=== PATIENT | male | born 1935 | race Caucasian/White ===

== ENCOUNTER 2017-05-01 09:59 | Emergency (ER) | payer MEDICARE ==
[2009-07-01 16:20] VITALS: BMI 29.4
[2017-05-01 11:10] LABS: HEMATOCRIT 39.4 % (42.0-54.0); LYMPHOCYTES 15.1 % (15-50); MCH 29.7 pg (26.0-34.0); MCV 90.2 fL (80.0-100.0); MEAN PLATELET VOLUME 8.2 fL (7.4-10.4); NEUTROPHILS 79.1 % (40-80); RBC 4.37 10x6/uL (4.20-6.10); RDW 13.2 % (11.5-14.5); WBC 6.9 10x3/uL (4.8-10.8)
[2017-05-01 11:11] LABS: PLATELET COUNT 300 10x3/uL (130-400)
[2017-05-01 11:35] LABS: APTT 32.8 SECONDS (22.8-39.4); INR 1.93 (0.85-1.17); PROTIME 21.5 SECONDS (11.6-15.0)
[2017-05-01 11:43] LABS: ALBUMIN 4.2 g/dL (3.4-5.0); ALKALINE PHOSPHATASE 65 U/L (46-116); ALT (SGPT) 34 U/L (10-68); BILIRUBIN - TOTAL 0.41 mg/dL (0.2-1.3); CALC OSMOLALITY 273 mosm/kg (275-300); CALCIUM 9.6 mg/dL (8.5-10.1); CARBON DIOXIDE 27.6 mmol/L (21.0-32.0); CHLORIDE - SERUM 100 mmol/L (98-107); GLUCOSE 112 mg/dL (74-106); POTASSIUM - SERUM 4.5 mmol/L (3.5-5.1); PROTEIN - SERUM 7.5 g/dL (6.4-8.2); SODIUM 136 mmol/L (136-145); UREA NITROGEN 16 mg/dL (7-18); eGFR NON AFRICAN AMERICAN 76 mL/min (90-120)
== END 2017-05-01 14:00 | disposition home or self-care (01) ==
LOC: D.ER 09:59
PROVIDERS: Family Medicine; Physician Assistant
DX: K62.5 Hemorrhage of anus and rectum (principal); Z87.19 Personal history of other diseases of the digestive system; K92.2 Gastrointestinal hemorrhage, unspecified; F03.90 Unspecified dementia, unspecified severity, without behavioral disturbance, psychotic disturbance, mood disturbance, and anxiety

== ENCOUNTER 2017-05-21 07:30 | Day surgery (SDC) | payer MEDICARE, OTHER ==
[~2017-05-21] VITALS: Ht 182.9 cm; Wt 109.1 kg
--- NOTE | ~2017-05-21 | OP ---
PATIENT NAME: DYLAN SONG MEDICAL RECORD: [id number] :33 LOCATION:D.OPS ADMISSION DATE: SURGEON: ADAIR ALFONSO DO DATE OF OPERATION: 05/21/2017 PROCEDURE: Colonoscopy with EMR and hot forceps polypectomy. INDICATIONS FOR PROCEDURE: Hematochezia and change in bowel habits. SCOPE: Olympus video pediatric colonoscope. MEDICATIONS: Propofol 450 mg IV per anesthesia. WITHDRAWAL TIME: Greater than 20 minutes. ESTIMATED BLOOD LOSS: Minimal. COMPLICATIONS: None. FINDINGS: Informed consent was given. The patient was made comfortable with the above medication. After reaching an adequate level of sedation by slow IV push, the patient was placed on his left side. A digital rectal examination was performed and was normal. The endoscope was then advanced under direct visualization through the rectum to the cecum with visualization of the appendiceal orifice and ileocecal valve. The scope was slowly withdrawn and mucosa was carefully examined. Prep quality was fair today. There were 4 polyps visualized in total. The 2 largest polyps were located in the proximal ascending colon just distal to the ileocecal valve. These were sessile polyps which were benign-appearing and ranged in size from 8 mm to 15 mm. Both of these polyps were removed using endoscopic mucosal resection technique with injection of normal saline for a saline pillow followed by hot snare polypectomy in one piece and completely retrieved. The first polyp site required one endoclip for tissue appositioning. The second site required 2 polyps. The maneuvers were successful. In the transverse colon, there was a single benign appearing sessile polyp which measured approximately 3-4 mm in diameter. It was removed using hot forceps in one piece and completely retrieved. In the descending colon, there was a final polyp which measured approximately 5 mm in diameter. It was removed using hot forceps in one piece and completely retrieved. In the rectum, there were multiple nonbleeding AVMs/angioectasias, which did ooze blood upon contact. Retroflexion was performed without seeing large hemorrhoids. There were multiple small mouth diverticula located in the descending and sigmoid colon. IMPRESSION: 1. Multiple polyps as described above, removed using various methods. 2. Mild diverticulosis of the left side of the colon. 3. Rectal AVMs/angioectasias. PLAN AND RECOMMENDATIONS: 1. Discharge home when recovery parameters are met. 2. Follow up biopsy specimen results. 3. High fiber diet. 4. Continue current medications. 5. If the patient experiences further bleeding, I would recommend a flexible sigmoidoscopy with APC of the rectal angioectasias for definitive therapy. At OPERATIVE REPORT [id number] DIES,DYLAN ASH this time, I will give him some steroid suppositories for a couple of weeks and follow this expectantly as he states his bleeding has stopped with improvement in his bowel habits. TRANSINT:[id number] Voice Confirmation ID: [id number] DOCUMENT ID: [id number] ADAIR ALFONSO DO at 1119 CC: [id number] DICTATION DATE: 05/21/17 1001 CAR BODY INSPECTOR: 05/21/17 1043 [facility] 05/21/17 [id number] [place] [address]
[2017-05-21] MEDS ORDERED: ARICEPT5 MG PO (07:54)
[2017-05-21] MEDS ORDERED: COUMADIN5 MG PO (07:54)
[2017-05-21] MEDS ORDERED: ATIVAN1 MG PO (07:54)
[2017-05-21] MEDS ORDERED: ZOLOFT100 MG PO (07:54)
[2017-05-21] MEDS ORDERED: SIMVASTATIN (07:55)
[2017-05-21] MEDS ORDERED: BAYER CHEWABLE81 MG PO (07:55)
[2017-05-21] MEDS ORDERED: AMOXICILLIN500 M1 PO (07:56)
[2017-05-21] MEDS ORDERED: PEPCID AC20 MG PO (07:56)
[2017-05-21] MEDS ORDERED: FLOMAX0.4 MG PO (07:57)
[2017-05-21 08:02] VITALS: BP 144/82; Ht 182.9 cm; Wt 109.1 kg
[2017-05-21 08:16] LABS: BASOPHILS 0.2 % (0-2); EOSINOPHILS 3.4 % (0-7); HEMATOCRIT 42.7 % (42.0-54.0); IMMATURE GRANULOCYTES 0.2 % (0-5); LYMPHOCYTES 20.8 % (15-50); MCH 29.7 pg (26.0-34.0); MCHC 32.8 g/dL (31.0-37.0); MCV 90.7 fL (80.0-100.0); MEAN PLATELET VOLUME 9.8 fL (7.4-10.4); MONOCYTES 8.4 % (2-11); RBC 4.71 10x6/uL (4.20-6.10); RDW 13.4 % (11.5-14.5); WBC 8.2 10x3/uL (4.8-10.8)
[2017-05-21 08:19] LABS: PLATELET COUNT 222 10x3/uL (130-400)
[2017-05-21 08:20] LABS: ANION GAP 18.9 mmol/L (8-16); CALCIUM 10.1 mg/dL (8.5-10.1); CREATININE - SERUM 1.3 mg/dL (0.6-1.3); POTASSIUM - SERUM 3.9 mmol/L (3.5-5.1)
== END 2017-05-21 11:04 | disposition home or self-care (01) ==
LOC: D.OPS 07:30
PROVIDERS: Anesthesiology
DX: K92.1 Melena (principal); D12.2 Benign neoplasm of ascending colon; D12.4 Benign neoplasm of descending colon; D12.3 Benign neoplasm of transverse colon; I10 Essential (primary) hypertension; I48.91 Unspecified atrial fibrillation; Z01.812 Encounter for preprocedural laboratory examination

== ENCOUNTER 2017-10-23 18:52 | Emergency (ER) | payer MEDICARE, OTHER ==
[~2017-10-23] VITALS: Ht 182.9 cm; Wt 109.1 kg
[~2017-10-23 18:52] MED LIST: AMOXICILLIN500 M1 PO; ARICEPT5 MG PO; ATIVAN1 MG PO; BAYER CHEWABLE81 MG PO; COUMADIN5 MG PO; FLOMAX0.4 MG PO; PEPCID AC20 MG PO; SIMVASTATIN; ZOLOFT100 MG PO
[2017-10-23 19:03] VITALS: Ht 182.9 cm; Wt 109.1 kg
[2017-10-23 19:34] LABS: BASOPHILS 0.3 % (0-2); EOSINOPHILS 5.9 % (0-7); HEMATOCRIT 41.4 % (42.0-54.0); HEMOGLOBIN 13.8 g/dL (13.5-17.5); IMMATURE GRANULOCYTES 0.2 % (0-5); LYMPHOCYTES 19.1 % (15-50); MCH 30.3 pg (26.0-34.0); MCHC 33.3 g/dL (31.0-37.0); MCV 90.8 fL (80.0-100.0); MEAN PLATELET VOLUME 10.3 fL (7.4-10.4); MONOCYTES 8.8 % (2-11); NEUTROPHILS 65.7 % (40-80); PLATELET COUNT 228 10x3/uL (130-400); RBC 4.56 10x6/uL (4.20-6.10); RDW 13.9 % (11.5-14.5)
[2017-10-23 19:42] LABS: APTT 38.4 SECONDS (22.8-39.4); INR 2.55 (0.85-1.17); PROTIME 26.7 SECONDS (11.6-15.0)
[2017-10-23 20:07] LABS: ALBUMIN 4.2 g/dL (3.4-5.0); ALKALINE PHOSPHATASE 79 U/L (46-116); ALT (SGPT) 35 U/L (10-68); BILIRUBIN - TOTAL 0.34 mg/dL (0.2-1.3); CALC OSMOLALITY 280 mosm/kg (275-300); CALCIUM 9.4 mg/dL (8.5-10.1); CARBON DIOXIDE 26.1 mmol/L (21.0-32.0); CHLORIDE - SERUM 103 mmol/L (98-107); GLUCOSE 101 mg/dL (74-106); POTASSIUM - SERUM 4.4 mmol/L (3.5-5.1); PROTEIN - SERUM 7.6 g/dL (6.4-8.2); SODIUM 138 mmol/L (136-145); UREA NITROGEN 27 mg/dL (7-18); eGFR NON AFRICAN AMERICAN 76 mL/min (90-120)
[2017-10-23 20:27] LABS: CKMB 0.8 U/L (0.0-3.6); CREATINE KINASE 94 UL (21-232); PRO BNP 642 pg/mL (0-450)
[2017-10-23 20:39] LABS: TROPONIN-I < 0.017 ng/mL (0.000-0.060)
[2017-10-23 21:45] VITALS: BP 150/78
== END 2017-10-23 21:45 | disposition home or self-care (01) ==
LOC: D.ER 18:52
PROVIDERS: Emergency Medicine
DX: K62.5 Hemorrhage of anus and rectum (principal); Z79.01 Long term (current) use of anticoagulants; Z95.2 Presence of prosthetic heart valve; Z86.79 Personal history of other diseases of the circulatory system; F03.90 Unspecified dementia, unspecified severity, without behavioral disturbance, psychotic disturbance, mood disturbance, and anxiety

== ENCOUNTER 2018-03-27 20:25 | Emergency (ER) | payer MEDICARE, OTHER ==
[~2018-03-27] VITALS: Ht 182.9 cm; Wt 90.9 kg
[2018-03-27 20:35] VITALS: Ht 182.9 cm; Wt 90.9 kg
[2018-03-27 21:37] LABS: BASOPHILS 0.3 % (0-2); EOSINOPHILS 4.4 % (0-7); HEMATOCRIT 39.5 % (42.0-54.0); HEMOGLOBIN 13.3 g/dL (13.5-17.5); IMMATURE GRANULOCYTES 0.3 % (0-5); LYMPHOCYTES 20.4 % (15-50); MCH 30.8 pg (26.0-34.0); MCHC 33.7 g/dL (31.0-37.0); MCV 91.4 fL (80.0-100.0); MEAN PLATELET VOLUME 9.6 fL (7.4-10.4); MONOCYTES 5.5 % (2-11); NEUTROPHILS 69.1 % (40-80); PLATELET COUNT 213 10x3/uL (130-400); RBC 4.32 10x6/uL (4.20-6.10); RDW 13.7 % (11.5-14.5); WBC 7.3 10x3/uL (4.8-10.8)
[2018-03-27 21:44] LABS: APTT 29.9 SECONDS (22.8-39.4); INR 1.84 (0.85-1.17); PROTIME 20.6 SECONDS (11.6-15.0)
[2018-03-27 21:50] LABS: ALKALINE PHOSPHATASE 65 U/L (46-116); ALT (SGPT) 27 U/L (10-68); BILIRUBIN - TOTAL 0.38 mg/dL (0.2-1.3); CALC OSMOLALITY 280 mosm/kg (275-300); CARBON DIOXIDE 22.6 mmol/L (21.0-32.0); CHLORIDE - SERUM 101 mmol/L (98-107); CREATININE - SERUM 1.2 mg/dL (0.6-1.3); POTASSIUM - SERUM 3.8 mmol/L (3.5-5.1); PROTEIN - SERUM 6.7 g/dL (6.4-8.2); SODIUM 137 mmol/L (136-145); UREA NITROGEN 24 mg/dL (7-18); eGFR NON AFRICAN AMERICAN 61 mL/min (90-120)
[2018-03-27 21:53] LABS: GLUCOSE 154 mg/dL (74-106)
[2018-03-27 22:01] LABS: LIPASE 175 U/L (73-393); PRO BNP 657 pg/mL (0-450)
[2018-03-27 22:09] LABS: TROPONIN-I < 0.017 ng/mL (0.000-0.060)
[2018-03-27 22:51] VITALS: BP 108/64
== END 2018-03-27 22:53 | disposition home or self-care (01) ==
LOC: D.ER 20:25
PROVIDERS: Family Medicine
DX: K92.2 Gastrointestinal hemorrhage, unspecified (principal); Z79.01 Long term (current) use of anticoagulants; N28.9 Disorder of kidney and ureter, unspecified; F03.90 Unspecified dementia, unspecified severity, without behavioral disturbance, psychotic disturbance, mood disturbance, and anxiety

== ENCOUNTER → 2018-08-06 16:54 | Outpatient (CLI) | payer MEDICARE, OTHER ==
[2018-03-27 20:35] VITALS: BMI 27.2
[2018-08-06 17:22] LABS: BASOPHILS 0.1 % (0-2); EOSINOPHILS 4.9 % (0-7); HEMATOCRIT 35.8 % (42.0-54.0); HEMOGLOBIN 11.5 g/dL (13.5-17.5); IMMATURE GRANULOCYTES 0.3 % (0-5); LYMPHOCYTES 21.9 % (15-50); MCH 28.7 pg (26.0-34.0); MCHC 32.1 g/dL (31.0-37.0); MCV 89.3 fL (80.0-100.0); MEAN PLATELET VOLUME 9.4 fL (7.4-10.4); MONOCYTES 7.5 % (2-11); NEUTROPHILS 65.3 % (40-80); PLATELET COUNT 221 10x3/uL (130-400); RBC 4.01 10x6/uL (4.20-6.10); RDW 14.5 % (11.5-14.5); WBC 7.2 10x3/uL (4.8-10.8)
== END | disposition home or self-care (01) ==
LOC: D.LAB 16:54
PROVIDERS: ATTEND Internal Medicine Gastroenterology
DX: K62.5 Hemorrhage of anus and rectum (principal)

== ENCOUNTER 2018-09-17 07:41 | Day surgery (SDC) | payer MEDICARE, OTHER ==
[~2018-09-17] VITALS: Ht 182.9 cm; Wt 100.7 kg
[2018-09-17 08:16] LABS: HEMATOCRIT 37.3 % (42.0-54.0); HEMOGLOBIN 12.2 g/dL (13.5-17.5); MCH 28.6 pg (26.0-34.0); MCHC 32.7 g/dL (31.0-37.0); MCV 87.4 fL (80.0-100.0); MEAN PLATELET VOLUME 8.9 fL (7.4-10.4); RBC 4.27 10x6/uL (4.20-6.10); RDW 14.8 % (11.5-14.5); WBC 6.5 10x3/uL (4.8-10.8)
[2018-09-17 09:02] VITALS: BP 120/67; Ht 182.9 cm; Wt 100.7 kg
--- NOTE | 2018-09-17 15:22 | NUR ---
1240 IV DC'ED WITH CATH INTACT BY Mili PALACIO R.N. UP TO BATHROOM WITHOU DIFFICULTY. DRESSING. Hugh AGUILERA R.N. 1250 DRESSED, AWAKE & ALERT. SITTING UP IN CHAIR . GIVEN DISCHARGE INFORMATION INCLUDING MED REC, SHEET LISTING NSAIDS TO AVOID, & [facility] ENDOSCOPY D/C INSTRUCTIONS INCLUDING TO RESUME COUMADIN IN 3 DAYS. PT & MRS. SONG VOICED UNDERSTANDING. TO PRIVATE CAR PER WHEELCHAIR BY VOLUNTEER. HOME WITH MRS. SONG. Hugh AGUILERA R.N.
--- NOTE | 2018-09-20 16:07 | OP ---
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 PROCEDURES: Flexible proctoscopy with treatment of angioectasias utilizing the argon plasma bereavement program coordinator with the right colon setting in the forced mode. SURGEON: Apple Patel MD GEOPHYSICAL LABORATORY DIRECTOR: None. BLOOD LOSS: Minimal. ANESTHESIA: IV sedation. COMPLICATIONS: None. The risks, possible complications and alternatives to the procedure were explained to the patient. He elects to proceed. ENDOSCOPIC COURSE: The patient was conveyed to the endoscopy suite electively on 09/17/2018. IV sedation was induced by the anesthesia staff. The patient was placed in the Albert position. A digital rectal examination was performed. Post-prostatectomy changes were identified. A colonoscope was inserted into the rectum. It was advanced to the sigmoid colon. The only area of angioectasias were on 1/2 of the rectum. Utilizing direct visualization and then a retroflexed view, I was able to visualize all of the angioectasias. I cleaned the rectum very well. Utilizing the argon plasma bereavement program coordinator with the right colon setting in the forced mode, I ablated all the angioectasias I could identify. There was very little bleeding. I then unretroflexed the scope and removed it under direct vision. I will see the patient in my office on a p.r.n. basis. There is no need for him to follow up with me in the office unless he develops a complication related to this operative procedure. I have told him that there may be a regrowth of new angioectasias and in fact this is to be expected. If he develops some hematochezia again, then he can just call the office and we will put him on the schedule for another treatment. He can restart his Coumadin in 3 days. TRANSINT:[id number] Voice Confirmation ID: [id number] DOCUMENT ID: [id number] OPERATIVE REPORT [id number] DYLAN SONG APPLE PATEL MD at 1607 CC: ROSA MCKEON MD, URVASHI SAUER MD and YAQUELIN [id number] DICTATION DATE: 09/17/18 1125 BRAND REPRESENTATIVE: 09/17/18 1140 [facility] 09/17/18 [id number] [place] [address]
== END 2018-09-17 12:50 | disposition home or self-care (01) ==
LOC: D.OPS 07:41
PROVIDERS: Anesthesiology; ATTEND Surgery
DX: I99.8 Other disorder of circulatory system (principal); K62.7 Radiation proctitis; Z01.812 Encounter for preprocedural laboratory examination

== ENCOUNTER 2019-11-27 15:45 | Observation (INO) | payer MEDICARE, OTHER ==
[~2019-11-27] VITALS: Ht 182.9 cm; Wt 109.1 kg
[2019-11-27 16:32] LABS: BASOPHILS 0.1 % (0-2); EOSINOPHILS 3.2 % (0-7); HEMATOCRIT 37.8 % (42.0-54.0); HEMOGLOBIN 12.7 g/dL (13.5-17.5); IMMATURE GRANULOCYTES 0.2 % (0-5); LYMPHOCYTES 19.8 % (15-50); MCH 30.3 pg (26.0-34.0); MCHC 33.6 g/dL (31.0-37.0); MCV 90.2 fL (80.0-100.0); MEAN PLATELET VOLUME 9.1 fL (7.4-10.4); MONOCYTES 8.5 % (2-11); NEUTROPHILS 68.2 % (40-80); PLATELET COUNT 221 10x3/uL (130-400); RBC 4.19 10x6/uL (4.20-6.10); RDW 13.3 % (11.5-14.5); WBC 8.2 10x3/uL (4.8-10.8)
[2019-11-27 16:35] VITALS: BP 140/65
--- NOTE | 2019-11-27 16:36 | NUR ---
PT DENIES CHEST PAIN AT THIS TIME.
[2019-11-27 16:53] LABS: APTT 35.3 SECONDS (22.8-39.4); INR 2.22 (0.85-1.17); PROTIME 24.3 SECONDS (11.6-15.0)
[2019-11-27 17:01] LABS: CALC OSMOLALITY 263 mosm/kg (275-300); CALCIUM 9.3 mg/dL (8.5-10.1); CARBON DIOXIDE 28.2 mmol/L (21.0-32.0); CHLORIDE - SERUM 95 mmol/L (98-107); CREATININE - SERUM 1.2 mg/dL (0.6-1.3); GLUCOSE 109 mg/dL (74-106); POTASSIUM - SERUM 4.8 mmol/L (3.5-5.1); SODIUM 130 mmol/L (136-145); UREA NITROGEN 18 mg/dL (7-18); eGFR NON AFRICAN AMERICAN 61 mL/min (90-120)
[2019-11-27 17:17] LABS: ALBUMIN 3.7 g/dL (3.4-5.0); ALKALINE PHOSPHATASE 68 U/L (30-120); ALT (SGPT) 29 U/L (10-68); BILIRUBIN - TOTAL 0.43 mg/dL (0.2-1.3); CKMB 0.8 U/L (0.0-3.6); CREATINE KINASE 126 UL (21-232); MAGNESIUM - SERUM 1.8 mg/dL (1.8-2.4); TROPONIN-I < 0.017 ng/mL (0.000-0.060)
[2019-11-27 17:33] VITALS: BP 150/74
[2019-11-27 18:42] LABS: CKMB 0.8 U/L (0.0-3.6); CREATINE KINASE 77 UL (21-232); TROPONIN-I < 0.017 ng/mL (0.000-0.060)
--- NOTE | 2019-11-27 19:05 | NUR ---
[PT DENIES CHEST PAIN AT THIS TIME.
--- NOTE | 2019-11-27 19:41 | NUR ---
CALLED REPORT TO [facility] UNABLE TO TRANSPORT PATIENT AT THIS TIME.
[2019-11-27] MEDS ORDERED: ZOCOR20 MG PO (20:41)
[2019-11-27] MEDS ORDERED: LOVENOX80 MG/0.8 SC (20:43)
[2019-11-27] MEDS ORDERED: NORVASC5 MG PO (20:43)
[2019-11-27] MEDS ORDERED: NAMENDA5 MG PO (20:44)
[2019-11-27] MEDS ORDERED: MELATONIN 3 MG1 TAB PO (20:45)
[2019-11-27] MEDS ORDERED: ACETAMINOPHEN500 M1 PO (20:46)
[2019-11-28] VITALS: BP 115/42
[2019-11-28 00:02] LABS: CKMB 0.6 U/L (0.0-3.6); CREATINE KINASE 89 UL (21-232); TROPONIN-I < 0.017 ng/mL (0.000-0.060)
[2019-11-28 04:00] VITALS: BP 135/61
[2019-11-28 04:19] VITALS: BMI 32.6
[2019-11-28 06:20] LABS: BASOPHILS 0.4 % (0-2); EOSINOPHILS 5.7 % (0-7); HEMATOCRIT 36.9 % (42.0-54.0); HEMOGLOBIN 12.1 g/dL (13.5-17.5); IMMATURE GRANULOCYTES 0.3 % (0-5); LYMPHOCYTES 20.1 % (15-50); MCHC 32.8 g/dL (31.0-37.0); MCV 91.3 fL (80.0-100.0); MEAN PLATELET VOLUME 8.8 fL (7.4-10.4); MONOCYTES 9.4 % (2-11); NEUTROPHILS 64.1 % (40-80); PLATELET COUNT 215 10x3/uL (130-400); RBC 4.04 10x6/uL (4.20-6.10); RDW 13.3 % (11.5-14.5)
[2019-11-28 06:40] LABS: INR 2.36 (0.85-1.17); PROTIME 25.5 SECONDS (11.6-15.0)
[2019-11-28 06:48] LABS: ALBUMIN 3.6 g/dL (3.4-5.0); ALKALINE PHOSPHATASE 61 U/L (30-120); ALT (SGPT) 25 U/L (10-68); CALC OSMOLALITY 269 mosm/kg (275-300); CALCIUM 9.3 mg/dL (8.5-10.1); CARBON DIOXIDE 26.4 mmol/L (21.0-32.0); CHLORIDE - SERUM 99 mmol/L (98-107); CHOLESTEROL, TOTAL 186 mg/dL (0-200); CKMB 0.8 U/L (0.0-3.6); CREATINE KINASE 59 UL (21-232); GLUCOSE 109 mg/dL (74-106); HDL CHOLESTEROL 63 mg/dL (32-96); LDL CHOLESTEROL 98 mg/dL (0-100); LDL-HDL RATIO 1.6 ratio (1.5-3.5); MAGNESIUM - SERUM 1.9 mg/dL (1.8-2.4); PHOSPHOROUS 4.1 mg/dL (2.5-4.9); POTASSIUM - SERUM 4.3 mmol/L (3.5-5.1); PROTEIN - SERUM 6.5 g/dL (6.4-8.2); SODIUM 133 mmol/L (136-145); THYROID STIMULATING HORMONE 1.67 uIU/mL (0.36-3.74); TRIGLYCERIDE 125 mg/dL (30-200); TROPONIN-I < 0.017 ng/mL (0.000-0.060); UREA NITROGEN 20 mg/dL (7-18); eGFR NON AFRICAN AMERICAN 75 mL/min (90-120)
[2019-11-28 08:54] VITALS: Ht 182.9 cm; Wt 109.1 kg
[2019-11-28] MEDS ORDERED: PROTONIX40 MG PO (09:02)
[2019-11-28 09:58] VITALS: BP 140/84
--- NOTE | 2019-11-28 10:14 | NUR ---
PT DISCHARGED HOME VIA WHEELCHAIR WITH FAMILY. PIV REMOVED WITH CATHETER TIP FLLY INTACT. PT SIGNED PROPER DISCHARGE INSTRUCTIONS AND REMOVED ALL VALUABLES FROM THE ROOM. TELEMETRY REMOVED AND RETURNED.
== END 2019-11-28 10:17 | disposition home or self-care (01) ==
LOC: D.ER 15:45 → D.M2 17:45 → OBSVTIME 17:45 → D.M2 11-28 10:17
PROVIDERS: Family Medicine; ADMIT Emergency Medicine; ATTEND Emergency Medicine
DX: I48.20 Chronic atrial fibrillation, unspecified (principal); R07.9 Chest pain, unspecified; Z79.01 Long term (current) use of anticoagulants; Z95.2 Presence of prosthetic heart valve; N40.0 Benign prostatic hyperplasia without lower urinary tract symptoms; F03.90 Unspecified dementia, unspecified severity, without behavioral disturbance, psychotic disturbance, mood disturbance, and anxiety; F41.8 Other specified anxiety disorders; I25.119 Atherosclerotic heart disease of native coronary artery with unspecified angina pectoris